=== PATIENT | female | born 1990 | race Caucasian/White ===

== ENCOUNTER 2023-02-12 10:24 | Inpatient (IN) | payer OTHER ==
[~2023-02-12] VITALS: Ht 167.6 cm; Wt 63.6 kg
[2023-02-12 11:38] LABS: BASOPHILS % (AUTO) 0.4 % (0.0-2.0); EOSINOPHILS % (AUTO) 1.4 % (1.0-6.0); HEMATOCRIT 42.5 % (36-46); LYMPHOCYTES # (AUTO) 1.3 K/uL (1.0-4.8); LYMPHOCYTES % (AUTO) 23.7 % (22.0-44.0); MEAN CORPUSCULAR HEMOGLOBIN 29.5 pg (26.0-34.0); MEAN CORPUSCULAR HGB CONC 32.9 G/dL (31.0-37.0); MEAN CORPUSCULAR VOLUME 90 fL (80-100); MONOCYTES # (AUTO) 0.3 K/uL (0.1-1.0); MONOCYTES % (AUTO) 4.5 % (2.0-9.0); PLATELET COUNT (AUTO) 237 K/uL (150-450); RED BLOOD CELL COUNT(AUTO) 4.75 MIL/uL (4.00-5.20); RED CELL DISTRIBUTION WIDTH 14.8 % (11.5-14.5)
[2023-02-12 11:51] LABS: ANION GAP 4 mmol/L (8-16); CALCIUM, TOTAL 9.2 mg/dL (8.8-10.5); CARBON DIOXIDE 30 mmol/L (22-29); CHLORIDE 104 mmol/L (98-107); CREATININE 0.65 mg/dL (0.60-1.30); GLOMERULAR FILTR. RATE CALC > 60 mL/min (>60); GLUCOSE,RANDOM 97 mg/dL (70-110); POTASSIUM 3.8 mmol/L (3.5-5.1); SODIUM SERUM 138 mmol/L (136-145)
[2023-02-12 11:56] LABS: ALANINE AMINOTRANSFERASE 20 U/L (12-78); ALBUMIN 4.2 g/dL (3.4-5.0); ALKALINE PHOSPHATASE 69 U/L (46-116); ASPARTATE AMINOTRANSFERASE 11 U/L (15-37); BILIRUBIN,TOTAL 0.5 mg/dL (0.1-1.0); TOTAL PROTEIN, SERUM 8.1 g/dL (6.4-8.2)
[2023-02-12] MEDS ORDERED: ALBUTEROL SULFATE 2.5 MG/0.5 ML NEB SOLUTION NEB PRN (13:30)
[2023-02-12] MEDS ORDERED: ACETAMINOPHEN 325 MG TABLET PO PRN (13:30)
[2023-02-12] MEDS ORDERED: IPRATROPIUM BROMIDE 0.5 MG/2.5 ML NEB SOLUTION NEB PRN (13:30)
[2023-02-12] MEDS ORDERED: 0.9% SODIUM CHLORIDE 10 ML SYRINGE IVP PRN (13:30)
[2023-02-12] MEDS ORDERED: ONDANSETRON HCL 4 MG/2 ML VIAL IVP PRN (13:30)
[2023-02-12] MEDS: SODIUM CHLORIDE 0.45% 1,000 ML IV SCH (14:58)
[2023-02-12 15:00] VITALS: BP 98/53
[2023-02-12 20:12] VITALS: BP 100/65
[2023-02-13] MEDS: SODIUM CHLORIDE 0.45% 1,000 ML IV SCH ×2 (04:18→06:21)
[2023-02-13 04:28] VITALS: BP 101/68
[2023-02-13 07:04] LABS: BASOPHILS % (AUTO) 0.4 % (0.0-2.0); EOSINOPHILS % (AUTO) 3.2 % (1.0-6.0); HEMATOCRIT 39.4 % (36-46); HEMOGLOBIN 13.1 g/dL (12.0-16.0); LYMPHOCYTES # (AUTO) 2.1 K/uL (1.0-4.8); LYMPHOCYTES % (AUTO) 39.3 % (22.0-44.0); MEAN CORPUSCULAR HEMOGLOBIN 29.9 pg (26.0-34.0); MEAN CORPUSCULAR HGB CONC 33.3 G/dL (31.0-37.0); MEAN CORPUSCULAR VOLUME 90 fL (80-100); MONOCYTES # (AUTO) 0.4 K/uL (0.1-1.0); MONOCYTES % (AUTO) 7.5 % (2.0-9.0); NEUTROPHILS # (AUTO) 2.7 K/uL (1.8-7.7); NEUTROPHILS % (AUTO) 49.6 % (40.0-70.0); PLATELET COUNT (AUTO) 233 K/uL (150-450); RED CELL DISTRIBUTION WIDTH 14.9 % (11.5-14.5)
[2023-02-13 07:29] LABS: ANION GAP 7 mmol/L (8-16); CALCIUM, TOTAL 8.8 mg/dL (8.8-10.5); CARBON DIOXIDE 28 mmol/L (22-29); CHLORIDE 101 mmol/L (98-107); CREATININE 0.66 mg/dL (0.60-1.30); GLOMERULAR FILTR. RATE CALC > 60 mL/min (>60); GLUCOSE,RANDOM 93 mg/dL (70-110); POTASSIUM 4.3 mmol/L (3.5-5.1); SODIUM SERUM 136 mmol/L (136-145)
[2023-02-13 08:08] VITALS: BP 115/78
[2023-02-13] MEDS: POLYETHYLENE GLYCOL 3350 17 GM PACKET PO SCH ×3 (08:49→21:15)
[2023-02-13 15:56] VITALS: BP 110/65
[2023-02-13 20:03] VITALS: BP 100/61
[2023-02-14 05:14] VITALS: BP 102/60
[2023-02-14 07:39] VITALS: BP 109/63
[2023-02-14] MEDS: POLYETHYLENE GLYCOL 3350 17 GM PACKET PO SCH ×3 (09:00→19:41)
[2023-02-14] MEDS ORDERED: BARIUM SULFATE 0.1% SUSPENSION 450 ML BOTTLE ONE ×2 (11:58)
[2023-02-14 15:38] VITALS: BP 96/55
[2023-02-14 19:55] VITALS: BP 92/61
[2023-02-15 04:30] VITALS: BP 89/61
[2023-02-15 05:29] VITALS: BP 115/60
[2023-02-15 07:30] VITALS: BP 94/67
[2023-02-15] MEDS: POLYETHYLENE GLYCOL 3350 17 GM PACKET PO SCH ×2 (08:56→08:59)
== END 2023-02-15 14:02 | DRG 395 ==
LOC: EMS 10:30 → 6S 13:46
PROVIDERS: ADMIT Internal Medicine; ATTEND Internal Medicine
DX: T18.8XXA Foreign body in other parts of alimentary tract, initial encounter (principal); R10.9 Unspecified abdominal pain; X58.XXXA Exposure to other specified factors, initial encounter; Y93.89 Activity, other specified; Y92.89 Other specified places as the place of occurrence of the external cause; Y99.8 Other external cause status; Z90.710 Acquired absence of both cervix and uterus
CPT/HCPCS: 74176; 76856; 80048; 80053; 84703; 85025; 99285; Q9967